=== PATIENT | male | born 1945 | race Caucasian/White ===

== ENCOUNTER 2024-05-06 10:33 | Outpatient (REF) | payer OTHER, SELFPAY ==
[2024-05-06 11:06] LABS: Estimated Average Glucose 120 mg/dL; Hemoglobin A1C 143.8502 umol/L; Hemoglobin A1c % 5.8 % (<6.0); Total Hemoglobin (HGBA1C) 3619.3475 umol/L
--- OUTSIDE RECORDS SUMMARY | 2024-05-06 11:33 | XMS_ITS ---
Author Organization Severo Phillips MD Address [address] [place] [phone] Care Team Providers Care Milk Pasteurizer Name Role Phone Severo Phillips Primary Care Provider Results Component Value Reference Range Notes Hemoglobin A1c (Not yet revi ewed by provider) Interpretation: Performing Lab:[facility], [address] [place] [phone] Notes/Report: Hemoglobin A1c % 5.8 <6.0 % [...] average glucose, using the formula of the M5I-Ifssawn Average Glucose study (ADAG), Diabetes Care, Vol.31,#8, Oct. 2007 REASON FOR VISIT LIVER PANEL, GLUCOSE FASTING, A1C Encounters Encounter Location Date Provider Diagnosis Severo Phillips MD [address] [place] [phone] 05/06/2024 Severo Phillips Prediabetes R73.09 Assessments Encounter Date Diagnosis (ICD Code) Assessment Notes Treatment Notes Treatment Clinical Notes Section Notes 05/06/2024 Prediabetes (ICD-10 - R73.09) Plan Of Treatment Pending Test Test Name Order Date Liver Panel 05/06/2024 Glucose Fasting 05/06/2024 Hemoglobin A1c 05/06/2024 Next Appt Details Provider Name:Severo clarkr, 05/10/2024 01:30:00 PM, [address] [place] [address], [address], [phone], Provider Name:Severo clarkr, 07/23/2024 07:30:00 AM, [address] [place] [address], [address], [phone], Provider Name:Severo Luque ier, 07/29/2024 11:15:00 AM, [address] [place] [address], [address], [phone], Provider Name:Severo Bin Duncandivya ier, 01/27/2025 07:30:00 AM, [address] [place] [address], [address], [phone], Provider Name:Severo Luque amberr, 02/03/2025 10:30:00 AM, [address] [place] [address], [address], [phone], Progress Notes * Travis POND GDOB: [birth year] (79 yo M)Acc No.[id number]:05/06/2024 Progress Note Patient:?ALEXISMAYRAONEIDA Travis Lion Provider:?Severo Phillips MD :1945???Age:79 Y???Sex:Male Jeffrey e:05/06/2024 Address:[place] [address] [place] [address] Subjective: * Chief Complaints: * ???1. LIVER PANEL, GLUCOSE F ASTING, A1C. * Medical History:? Objective: * Vitals:? Assessment: * Assessment: 1.?Prediabetes - R73.09??? Plan: * Treatment: * Procedure Codes:?38126 VENIP UNCT, ROUTINE* * * The named appointment provid er may or may not be the originator of this progress note, and it is not deemed complete until electronically signed by the appointment provider. Sign off status: Pending * Provider:?Severo Phillips MD Date:?0 05/06/2024 Generated for Fidel guzmán/Aidee/Elidaitting on:?05/06/2024 11:32 AM EST
--- OUTSIDE RECORDS SUMMARY | 2024-05-06 11:33 | XMS_ITS ---
Author Organization Severo Phillips MD Address [address] [place], [place] [phone] Care Team Providers Care Heel Scorer Name Role Phone Severo Phillips Primary Care Provider [phone] Allergies Allergen (clinical drug ingredient) Drug/Non Drug Allergy documented on EMR Reaction Allergy Type Onset Date Status Iodine dye (uncoded) hives Allergy Active REASON FOR VISIT go over lab results, Audio [phone] Medications Medication SIG (Take, Route, Frequency, Duration) [...] Location Date Provider Diagnosis Severo Phillips MD [address] [place] [phone] 02/01/2024 Severo Phillips Prediabetes R73.09 ; Elevated [...] hypercholesterolemia stable, will c ontiue current regiment Pending Test Test Name Order Date Liver Panel 02/01/2024 Glucose Fasting 02/01/2024 Hemoglobin A1c 02/01/2024 Next Appt Details Follow Up: 3 Months, Reason: Provider Name:Severo sanchez, 05/10/2024 01:30:00 PM, [address] [place] [address], [address], [phone], Provider Name:Severo sanchez, 07/23/2024 07:30:00 AM, [address] [place] [address], [address], [phone], Provider Name:Severo sanchez, 07/29/2024 11:15:00 AM, [address] [place] [address], [address], [phone], Provider Name:Severo Luque amberr, 01/27/2025 07:30:00 AM, [address] [place] [address], Suite [facility], [place], [phone], Provider Name:Severo Luque amberr, 02/03/2025 10:30:00 AM, [address] [place] [address], Suite [facility], [place], [phone], Progress Notes * HEIDY Travis GDOB: [birth year] (78 yo M)Acc No.[id number]:02/01/2024 Patient:?Travis Pond Ayad Provider:?Severo Phillips MD :1945???Age:78 Y???Sex:Male Jeffrey e:02/01/2024 Address:[facility] [address] [place] [address] Subjective: * Chief Complaints: * ???[phone] * HPI: ???Symptom(s):?Telehealth?Location of provider rendering services:?[address] [place] [address], Suite [facility],?Location of patient:?at address listed in demographics for today's visit,?Patient identification confirmed using:?Name, , SSN, Insurance information,?Telehealth method:?Telephone only. Patient not visible to care provider.,?Consent:?Patient verbally consented to treatment, Patient verbally consented to billing insurance company, Patient informed of any privacy concerns related to method of visit,?Total time spend talking with patient (minutes)?15.? patient is a 78 yo male audio tlehealthvisit, here for follow up to go over recent labs. * ROS:?General/Constitutional:?Denies?Chills.?Denies?Fatigue.?Denies?Fever.?Denies?Headache.?ENT:?Patient denies?decreased sense of smell , any loss of taste , sore throat.?Denies?Sore throat.?Respiratory:?Denies?Cough.?Denies?Shortness of breath at rest.?Denies?Shortness of breath with exertion.?Gastrointestinal:?Denies?Diarrhea.?Denies?Nausea.?Musculoskeletal:?Patient denies?muscle aches.?Peripheral Vascular:?Patient denies?red and blue toes.? * Medical History:? * Surgical History:? * Hospitalization/Major Diagno stic Procedure:? * Medications:?TakingprednisoL ONE Acet-Moxifloxacin 1-0.5 % Suspension as directed Ophthalmic [...] reviewed and reconciled with the patient * Allergies:?Iodine dye: hives yes[Allergies Verified] Objective: * Vitals:?Ht: 69, Wt:201, BMI: 29.68 weight is 201 at home BP not taken at home. Assessment: * Assessment: 1.?Prediabetes - R73.09 (Kisha mon)?2.?Elevated LFTs - R79.89?3.?Pure hypercholesterolemia - E78.00? Plan: * Treatment: 2.?Elevated LFTs? Notes: decrease wine, will continue to monitor?? 3.?Pure hypercholesterolemia ? Continue Simvastatin Tablet, 40 MG, TAKE 1 TABLET BY MOUTH ONCE DAILY IN THE EVENING.?? Notes: stable, will contiue current regiment?? * Procedure Codes:?06204 PHONE E/M BY PHYS 21-30 MIN * Follow Up:?3 Months * * Sign off status: Completed true * Provider:?Severo Phillips MD Date:?04/02/2023 Generated for Dhiraji ramirez/Aidee/eTransmitting on:?05/06/2024 11:33 AM EST History and Physical Notes * HPI (History of Present Illness) Category Sub-Category Detail Notes Category Not es Symptom(s) Telehealth Location of [facility] rendering services:: [address] [place] [address] Drive, [address] patient is a 78 [...]
--- OUTSIDE RECORDS SUMMARY | 2024-05-06 11:33 | XMS_ITS ---
Author Organization Severo Phillips MD Address [address] [place], [place] [phone] Care Team Providers Care Box Lining Machine Operator Name Role Phone Severo Phillips Primary Care Provider Allergies Allergen (clinical drug ingredient) Drug/Non Drug [...] kg/m2 01/30/2024 weight is down 2 pounds [facility] 05-25-23 Encounters Encounter Location Date Provider Diagnosis Severo Phillips MD [address] [place] [address] [place] [phone] 01/30/2024 Severo Phillips Essential hypertensi on I10 [...] hypercholesterolemia (ICD-10 - E78.00) need labs from [facility] / request for records will be sent [...] nurses house Pure hypercholesterolemia need labs from [facility] / request for records will be sent Prediabetes stable, no need for medication at this time BPH (benign prostatic hyperplasia) stabl e, will contiue current regiment Encounter for immunization flu vaccine a dministered Colon cancer screening guaiac negative Depression screening negative screen Next Appt Details Follow Up: 6 Months, Reason: Provider Name:Severo sanchez, 05/10/2024 01:30:00 PM, [address] [place] [address], [phone], Provider Name:Severo sanchez, 07/23/2024 07:30:00 AM, [address] [place] [address], [phone], Provider Name:Severo sanchez, 07/29/2024 11:15:00 AM, [address] [place] [address], [phone], Provider Name:Severo sanchez, 01/27/2025 07:30:00 AM, [address] [place] [address], [phone], Provider Name:Severo sanchez, 02/03/2025 10:30:00 AM, [address], [address], [place], [place], [phone], Progress Notes * Travis POND GDOB: [birth year] (78 yo M)Acc No.[id number]:01/30/2024 Patient:Travis Mckeon Provider:?Severo Phillips MD :1945???Age:78 Y???Sex:Male Jeffrey e:01/30/2024 Address:[facility] [address] [facility], [place] [address] Subjective: * Chief Complaints: * ???Review labs * HPI: ???Depression Screening:?PHQ-9?Little interest or pleasure in doing things?Not at all,?Feeling down, depressed, or hopeless?Not at all,?Trouble falling or staying asleep, or sleeping too much?Not at all,?Feeling tired or having little energy?Not at all,?Poor appetite or overeating?Not at all,?Feeling bad about yourself or that you are a failure, or have let yourself or your family down?Not at all,?Trouble concentrating on things, such as reading the newspaper or watching television?Not at all,?Moving or speaking so slowly that other people could have noticed; or the opposite, being so fidgety or restless that you have been moving around a lot more than usual?Not at all,?Thoughts that you would be better off or of hurting yourself in some way?Not at all,?Total Score?0.?Interpretation and Intervention?Depression Screening Findings?Negative,?Follow-Up for Depression?: review of PHQ-9 found negative result, no follow-up needed.?Communication Needs:?Communication Needs?Does the patient have a hearing impairment?No,?Does the patient have a vision impairment??Yes,?If yes, what is the vision impairment??Glasses,?Does the patient have a cognition impairment??No.?Fall Risk:?History?Have you had any falls with injury in the past year??Yes 11-26-23 fell off a small ladder moving a plant. had xray of r wrist. saw hand surgeon 12-26-23,?Have you had two or more falls in the past year??No.?SDOH Questions:?SDOH Questions?In the past year have you been worried about losing housing??No,?In the past year have you or any family members you live with been unable to get any of the following when it was really needed? Check all that apply:?None.?Symptom(s):? patient is a 78 yo male here for visit with review of recent labs and follow up of chronic issues, having some problems with shoulder and knees. has been using voltaren cream. is helping. knee is bothering him. * ROS:?General/Constitutional:?Patient denies?fatigue , headache.?Change in appetite?denies.?Chills?denies.?Fever?denies.?Ophthalmologic:?Blurred vision?denies.?Discharge?denies.?Pain?denies.?ENT:?Patient denies?decreased sense of smell , any loss of taste , sore throat.?Decreased hearing?denies.?Sore throat?denies.?Swollen glands?denies.?Endocrine:?Cold intolerance?denies.?Excessive thirst?denies.?Heat intolerance?denies.?Weight loss?denies.?Respiratory:?Cough?denies.?Shortness of breath at rest?denies.?Shortness of breath with exertion?denies.?Wheezing?denies.?Cardiovascular:?Chest pain at rest?denies.?Chest pain with exertion?denies.?Irregular heartbeat?denies.?Shortness of breath?denies.?Gastrointestinal:?Abdominal pain?denies.?Change in bowel habits?denies.?Diarrhea?denies.?Nausea?denies.?Rectal bleeding?denies.?Vomiting?denies .?Genitourinary:?Blood in urine?denies.?Difficulty urinating?denies.?Frequent urination?denies.?Musculoskeletal:?Patient denies?muscle aches.?Painful joints?denies.?Weakness?denies.?Peripheral Vascular:?Patient denies?red and blue toes.?Skin:?Dry skin?denies.?Itching?denies.?Denies?Mole(s),? changes in moles, new moles or any lesions of concern.?Denies?Photosensitivity.?Rash?denies.?Neurologic:?Dizziness?denies.?Fainting?denies.?Headache?denies.? * Medical History:? * Surgical History:? * Hospitalization/Major Diagno stic Procedure:? * Family History:?Father: dece ased 71 yrs.?Mother: 69 yrs.?1 brother(s) . .? Father [place] Mother- pancreatic Cancer no drug or mental illness in the family, Denies mental health/substance abuse family history, Denies mental health/substance abuse family history, Denies mental health/substance abuse family history, Denies mental health/substance abuse family history. * Social History:?Tobacco Use:?Tobacco Use/Smoking?Patient is a?former smoker,?How long has it been since you last smoked??> 10 years,?Additional Findings: Tobacco Non-User?Former smoker, currently using no form of tobacco.?Drugs/Alcohol:?Alcohol Screen?Did you have a drink containing alcohol in the past year??Yes,?How often did you have a drink containing alcohol in the past year??2 to 4 times a month (2 points),?How many drinks did you have on a typical day when you were drinking in the past year??1 or 2 drinks (0 point),?How often did you have 6 or more drinks on one occasion in the past year??Never (0 point),?Points?2,?Interpretation?Negative.?Miscellaneous:?Caffeine: yes, frequency:, 1-2 cups per day. no Children. Community involvements: yes. no Exercise. Housing: lives in the parish house. Living with: other priests. Marital status: single. Occupation: works full-time. Pets: none. no Travel outside of the [place]. * Medications:?TakingprednisoL ONE Acet-Moxifloxacin 1-0.5 % Suspension [...] Verified] Objective: * Vitals:?Ht: 69, Wt:201, BMI: 29.68, BP:172/80, Repeat BP:160/70 weight is down 2 pounds since 05-25-23. * Examination: ???General Examination: ?GENERAL APPEARANCE:?well developed, well nourished, in no acute distress.?HEAD:?normocephalic, atraumatic.?EYES:?pupils equal, round, reactive to light and accommodation, sclera non-icteric.?EARS:?normal.?ORAL CAVITY:?mucosa moist.?THROAT:?clear.?NECK/THYROID:?neck supple, full range of motion, no cervical lymphadenopathy, no bruits.?SKIN:?warm and dry, no suspicious lesions.?HEART:?regular rate and rhythm, S1, S2 normal, no murmurs.?LUNGS:?clear to auscultation bilaterally.?ABDOMEN:?soft, nontender, nondistended, bowel sounds present, normal, no organomegaly , no masses palpable.?RECTAL EXAM:?normal tone, no external hemorrhoids, no masses palpable, prostate normal, stool guaiac negative.?MALE GENITOURINARY:?uncircumcised , no testicular mass , testes descended bilaterally.?EXTREMITIES:?no clubbing, cyanosis, or edema.?NEUROLOGIC:?nonfocal, motor strength normal upper and lower extremities, sensory exam intact.? Assessment: * Assessment: 1.?Essential hypertension - I10 (Primary)?2.?Pure hypercholesterolemia - E78.00?3.?Prediabetes - R73.09?4.?BPH (benign prostatic hyperplasia) - N40.0?5.?Encounter for immunization - Z23?6.?Colon cancer screening - Z12.11?7.?Depression screening - Z13.31? Plan: * Treatment: 2.?Pure hypercholesterolemia ? Continue Simvastatin Tablet, 40 MG, TAKE 1 TABLET BY MOUTH ONCE DAILY IN THE EVENING.?? Notes: need labs from [facility] / request for records will be sent?? 3.?Prediabetes? Notes: stable, no need for medication at this time?? 4.?BPH (benign prostatic hyp erplasia)? Continue Proscar Tablet, 5 MG, 1 tablet, Orally, Once a day.?? Notes: stable, will contiue current regiment?? 5.?Encounter for immunizatio n? Notes: flu vaccine administered?? 6.?Colon cancer screening?LAB: Occult Blood, Stool, Guaiac?Negative ? Value Reference Range ?Occult Blood, Stool, Guaiac Neg Notes: guaiac negative??7.?Depression screening? Notes: negative screen?? * Immunizations:? Influenza High Dose : 0.5 mL (Dose No:1) (Route: Intramuscular) given by Ashley Whittington on Right Deltoid * Procedure Codes:?89634 FLU V ACC PRSV FREE INC [id number] ADMN FLU VAC NO FEE SCHED SAME [id number] TEST FOR BLOOD, FECES * Preventive Medicine:? ??Counseling:?Care goal follow-up plan:?Counseling for abnormal BMI provided?Yes,?Above Normal BMI Follow-up?Giving encouragement to exercise.? * Follow Up:?6 Months * * Sign off status: Completed true * Provider:?Severo Phillips MD Date:?1 03/31/2023 Generated for Fidel guzmán/Aidee/Elianasmitting on:?05/06/2024 11:33 AM EST History and Physical [...] patient have a vision impairmen t?: Yes ?If yes, what is the vision impairment?: Glasses Does the patient have a cognition impair ment?: No Examination Category Sub-Category Detail Notes Category Not es General Examination GENERAL APPEARANCE: well dev eloped, well nourished, in no acute distress HEAD: normocephalic, atrau matic EYES: pupils equal, round, reactive to light and accommodation, sclera non- icteric EARS: normal THROAT: clear NECK/THYROID: neck supple, [...]
[2024-05-06 11:37] LABS: Alanine Aminotransferase 78 U/L (0-40); Albumin Level 3.8 g/dL (3.5-5.0); Alkaline Phosphatase 54 U/L (39-117); Aspartate Amino Transferase 53 U/L (5-37); Bilirubin Direct 0.2 mg/dL (0.0-0.5); Bilirubin Total 0.7 mg/dL (0.0-1.0); Glucose Fasting 155 mg/dL (60-99); Total Protein 7.6 g/dL (6.5-8.0)
== END 2024-05-06 10:34 | disposition home or self-care (01) ==
LOC: HO.LNP 10:33
PROVIDERS: Visit Provider Internal Medicine
DX: R73.09 Other abnormal glucose (principal)
CPT/HCPCS: 80076; 82947; 83036

== ENCOUNTER 2025-01-27 10:08 | Outpatient (REF) | payer MEDICARE, SELFPAY ==
--- OUTSIDE RECORDS SUMMARY | 2023-12-14 05:28 | XMS_ITS ---
Author Organization Severo Phillips MD Address [address] [place] [phone] Care Team Providers Care [place] Tribunal Member Name Role Phone Severo Phillips Primary Care Provider REASON FOR VISIT x-ray results Encounters Encounter Location Date Provider Diagnosis Severo Phillips MD [address] [facility] [address] [place] [phone] 12/14/2023 Severo Phillips Plan Of Treatment Next Appt Details Provider Name:Severo Luque ier, 02/03/2025 10:30:00 AM, [address], Suite [facility], [place], [place], [phone], Progress Notes * Travis POND GDOB: [birth year] (78 yo M)Acc No.[id number]:12/14/2023 Patient: Khloe sears Travis Ayad :1945 A ge:78 Y S ex:Male Address:[address] [place] [address] * true * Date: Generated for Fidel guzmán/Aidee/Brenda on: 03/29/2024 12:12 PM EST
--- OUTSIDE RECORDS SUMMARY | 2024-01-19 03:30 | XMS_ITS ---
Author Organization Severo Phillips MD Address [address] [place] [phone] Care Team Providers Care Junior Recruiter Name Role Phone Severo Phillips Primary Care Provider REASON FOR VISIT FASTING LABS Encounters Encounter Location Date Provider Diagnosis Severo Phillips MD [address] [place] [phone] 01/19/2024 Severo Phillips Essential hypertensi on I10 ; Pure hypercholesterolemia E78.00 and Prediabetes R73.09 Assessments Encounter Date Diagnosis (ICD Code) Assessment Notes Treatment Notes Treatment Clinical Notes Section Notes 01/19/2024 Essential hypertensi on (ICD-10 - I10) 01/19/2024 Pure hypercholesterolemia (ICD-10 - E78.00) 01/19/2024 Prediabetes (ICD-10 - R73.09) Plan Of Treatment Next Appt Details Provider Name:Severo sanchez, 02/03/2025 10:30:00 AM, [address], Suite [facility], [place], [place], [phone], Progress Notes * Travis POND GDOB: [birth year] (79 yo M)Acc No.[id number]:01/19/2024 Progress Note Patient: Travis JONES Provider: Ayad Phillips MD :1945 A ge:78 Y S ex:Male Date:01/19/2024 Address:[place] [address], [address] [place] [address] Subjective: * Chief Complaints: * 1 . FASTING LABS. * Medical History: Objective: * Vitals: Assessment: * Assessment: 1. E ssential hypertension - I10 2 . P ure hypercholesterolemia - E78.00? 3. P rediabetes - R73.09 Plan: * Treatment: 2. P ure hypercholesterolemia L AB: Complete Blood Count Auto Diff (Order Cancelled) L AB: Comprehensive [place]. Panel Fast (Order Cancelled) L AB: Lipid Panel (Order Cancelled) L AB: PSA,Total (Free>4and<10) (Order Cancelled) L AB: Microalbumin, Random (Order Cancelled) L AB: Hemoglobin A1c (Order Cancelled) L AB: UA ClnCatch+Micro w/rflx Cult (Order Cancelled) 3. P rediabetes L AB: Complete Blood Count Auto Diff (Order Cancelled) L AB: Comprehensive [place]. Panel Fast (Order Cancelled) L AB: Lipid Panel (Order Cancelled) L AB: PSA,Total (Free>4and<10) (Order Cancelled) L AB: Microalbumin, Random (Order Cancelled) L AB: Hemoglobin A1c (Order Cancelled) L AB: UA ClnCatch+Micro w/rflx Cult (Order Cancelled) * * The named appointment provid er may or may not be the originator of this progress note, and it is not deemed complete until electronically signed by the appointment provider. Sign off status: Pending * Provider: Ayad Phillips MD Date: Generated for Fidel guzmán/Aidee/Elidaitting on: 03/29/2024 12:13 PM EST
--- OUTSIDE RECORDS SUMMARY | 2024-01-30 06:00 | XMS_ITS ---
Author Organization Severo Phillips MD Address [address] [place], [place] [phone] Care Team Providers Care Manager Environmental Services Name Role Phone Severo Phillips Primary Care Provider [phone] Allergies Allergen (clinical drug ingredient) Drug/Non Drug Allergy documented on EMR Reaction Allergy Type Onset Date Status Iodine dye (uncoded) hives Allergy Active Results Component Value Reference Range Notes Occult Blood, Stool, Guaiac Reviewed date:01/30/2024 12:57:21 PM Interpretation:Negative Performing Lab: Notes/Report: Negative Occult Blood, Stool, Guaiac Neg REASON FOR VISIT review labs Medications Medication SIG (Take, Route, Frequency, Duration) Notes Start Date End Date Status Valsartan-hydroCHLOROthiaz gregory 320-25 MG TAKE 1 TABLET BY MOUTH ONCE DAILY Active Cyclobenzaprine HCl 5 MG 1 tablet at bed time as needed Orally twice a day for 10 days 09/03/2021 Not-Taking Celecoxib 200 MG 1 capsule with food Orally Once a day for 30 day(s) 10/30/2018 Not-Taking Fluorouracil 5 % 1 application to affected area Externally Twice a day 02/13/2017 Not-Takin g Ibuprofen 600 MG 1 tablet Orally Thre e times a day Not-Taking Proscar 5 MG 1 tablet Orally Once a day Active Simvastatin 40 MG TAKE 1 TABLET BY JERALD TH ONCE DAILY IN THE EVENING Active Flonase 50 MCG/ACT 1 spray in each nostril Nasally Once a day for 90 days 09/12/2017 Active prednisoLONE Acet-Moxifloxacin 1-0.5 % as directed Ophthalmic Active Immunizations Vaccine Route Administration Date Status Comme nts Influenza High Dose IM Intramuscular 01/30/2024 Administer ed Social History Tobacco Use: Social History Observation Description Date Details (start date - stop date) Former Smoker NA - NA Tobacco Use/Smoking Question Answer Notes Patient is a former smoker How long has it been since y ou last smoked? > 10 years Additional Findings: Tobacco Non-User Fo rmer smoker, currently using no form of tobacco Alcohol Screen Question Answer Notes Did you have a drink contain ing alcohol in the past year? Yes How often did you have a dri nk containing alcohol in the past year? 2 to 4 times a month (2 points) How many drinks did you have on a typical day when you were drinking in the past year? 1 or 2 drinks (0 point) How often did you have 6 or more drinks on one occasion in the past year? Never (0 point) Points 2 Interpretation Negative Vital Signs Blood pressure systolic 172 mm Hg 01/30/20 24 Blood pressure diastolic 80 mm Hg 024 Height 69 in 01/30/2024 Weight 201 lbs 01/30/2024 BMI 29.68 kg/m2 01/30/2024 weight is down 2 pounds [facility] 05-25-23 Encounters Encounter Location Date Provider Diagnosis Severo Phillips MD [address] [place] [address] [place] [phone] 01/30/2024 Severo Phillips Essential hypertensi on I10 ; Pure hypercholesterolemia E78.00 ; Prediabetes R73.09 ; BPH (benign prostatic hyperplasia) N40.0 ; Encounter for immunization Z23 ; Colon cancer screening Z12.11 and Depression screening Z13.31 Assessments Encounter Date Diagnosis (ICD Code) Assessment Notes Treatment Notes Treatment Clinical Notes Section Notes 01/30/2024 Essential hypertensi on (ICD-10 - I10) is running high today but is going to get it checked at nurses [facility] 01/30/2024 Pure hypercholesterolemia (ICD-10 - E78.00) need labs from [facility] / request for records will be sent 01/30/2024 Prediabetes (ICD-10 - R73.09) stable, no need for medication at this time 01/30/2024 BPH (benign prostati c hyperplasia) (ICD-10 - N40.0) stable, will contiue current regiment 01/30/2024 Encounter for immunization (ICD-10 - Z23) flu vaccine administered 01/30/2024 Colon cancer screeni ng (ICD-10 - Z12.11) guaiac negative 01/30/2024 Depression screening (ICD-10 - Z13.31) negative screen Plan Of Treatment Medication Medication Name Sig Start Date Stop Date Notes Valsartan-hydroCHLOROthiazid e 320-25 MG TAKE 1 TABLET BY MOUTH ONCE DAILY Proscar 5 MG 1 tablet Orally Once a day Simvastatin 40 MG TAKE 1 TABLET BY JERALD TH ONCE DAILY IN THE EVENING Treatment Notes Assessment Notes Essential hypertension is running high t charanjit but is going to get it checked at nurses house Pure hypercholesterolemia need labs from [facility] / request for records will be sent Prediabetes stable, no need for medication at this time BPH (benign prostatic hyperplasia) stabl e, will contiue current regiment Encounter for immunization flu vaccine a dministered Colon cancer screening guaiac negative Depression screening negative screen Next Appt Details Follow Up: 6 Months, Reason: Provider Name:Severo sanchez, 02/03/2025 10:30:00 AM, [address] [place] [address], [address], [phone], Progress Notes * Travis POND GDOB: [birth year] (78 yo M)Acc No.[id number]:01/30/2024 Patient: Travis Wilkins Provider: Ayad Phillips MD :1945 A ge:78 Y S ex:Male Date:01/30/2024 Address:[facility] [address] [place] [address] Subjective: * Chief Complaints: * R eview labs * HPI: D epression Screening: PHQ-9 L ittle interest or pleasure in doing things N ot at all, F eeling down, depressed, or hopeless N ot at all, T rouble falling or staying asleep, or sleeping too much N ot at all, F eeling tired or having little energy N ot at all, P oor appetite or overeating N ot at all, F eeling bad about yourself or that you are a failure, or have let yourself or your family down N ot at all, T rouble concentrating on things, such as reading the newspaper or watching television N ot at all, M oving or speaking so slowly that other people could have noticed; or the opposite, being so fidgety or restless that you have been moving around a lot more than usual N ot at all, T houghts that you would be better off or of hurting yourself in some way N ot at all, T otal Score 0 . I nterpretation and Intervention D epression Screening Findings N egative, F ollow-Up for Depression : review of PHQ-9 found negative result, no follow-up needed. C ommunication Needs: Communication Needs D oes the patient have a hearing impairment N o, D oes the patient have a vision impairment? Y es, I f yes, what is the vision impairment? G lasses, D oes the patient have a cognition impairment? N o. F all Risk: History H ave you had any falls with injury in the past year? Y es 11-26-23 fell off a small ladder moving a plant. had xray of r wrist. saw hand surgeon 12-26-23, H ave you had two or more falls in the past year? N o. S CHANELLE Questions: SDOH Questions I n the past year have you been worried about losing housing? N o, I n the past year have you or any family members you live with been unable to get any of the following when it was really needed? Check all that apply: N one. S ymptom(s): patient is a 78 yo male here for visit with review of recent labs and follow up of chronic issues, having some problems with shoulder and knees. has been using voltaren cream. is helping. knee is bothering him. * ROS: G eneral/Constitutional: Patient denies f atigue , headache. C hange in appetite?denies. C hills d enies. F ever d enies. O phthalmologic: Blurred vision d enies. D ischarge d enies. P ain d enies. E NT: Patient denies d ecreased sense of smell , any loss of taste , sore throat. D ecreased hearing d enies. S ore throat d enies. S wollen glands d enies. E ndocrine: Cold intolerance d enies. E xcessive thirst d enies. H eat intolerance d enies. W eight loss d enies. R espiratory: Cough d enies. S hortness of breath at rest d enies. S hortness of breath with exertion d enies. W heezing d enies. C ardiovascular: Chest pain at rest d enies. C hest pain with exertion?denies. I rregular heartbeat d enies. S hortness of breath d enies. ? G astrointestinal: Abdominal pain d enies. C hange in bowel habits d enies. D iarrhea d enies. N ausea d enies. R ectal bleeding d enies. V omiting d enies . G enitourinary: Blood in urine d enies. D ifficulty urinating d enies. F requent urination d enies. M usculoskeletal: Patient denies m uscle aches. P ainful joints d enies. W eakness d enies. P eripheral Vascular: Patient denies r ed and blue toes. S kin: Dry skin d enies. I tching d enies. D enies?Mole(s), changes in moles, new moles or any lesions of concern. D enies P hotosensitivity. R ulisses d enies. N eurologic: Dizziness d enies. F ainting d enies. H eadache?denies. * Medical History: * Surgical History: * Hospitalization/Major Diagno stic Procedure: * Family History: F ather: 71 yrs. M other: 69 yrs. 1 brother(s) . . Father [place] Mother- pancreatic Cancer no drug or mental illness in the family, Denies mental health/substance abuse family history, Denies mental health/substance abuse family history, Denies mental health/substance abuse family history, Denies mental health/substance abuse family history. * Social History: T obacco Use: T obacco Use/Smoking P atient is a f ormer smoker, H ow long has it been since you last smoked? > 10 years, A dditional Findings: Tobacco Non-User F ormer smoker, currently using no form of tobacco. D rugs/Alcohol: A lcohol Screen D id you have a drink containing alcohol in the past year? Y es, H ow often did you have a drink containing alcohol in the past year? 2 to 4 times a month (2 points), H ow many drinks did you have on a typical day when you were drinking in the past year? 1 or 2 drinks (0 point), H ow often did you have 6 or more drinks on one occasion in the past year? N ever (0 point), P oints 2 , I nterpretation N egative. M iscellaneous: C affeine: yes, frequency:, 1-2 cups per day. no Children. Community involvements: yes. no Exercise. Housing: lives in the poth house. Living with: other priests. Marital status: single. Occupation: works full-time. Pets: none. no Travel outside of the [place]. * Medications: T akingprednisoLONE Acet-Moxifloxacin 1-0.5 % Suspension as directed Ophthalmic Proscar 5 MG Tablet 1 tablet Orally Once a dayFlonase 50 MCG/ACT Suspension 1 spray in each nostril Nasally Once a daySimvastatin 40 MG Tablet TAKE 1 TABLET BY MOUTH ONCE DAILY IN THE EVENING Valsartan-hydroCHLOROthiazide 320-25 MG Tablet TAKE 1 TABLET BY MOUTH ONCE DAILY Taking prednisoLONE Acet-Moxifloxacin 1-0.5 % Suspension as directed Ophthalmic Taking Proscar 5 MG Tablet 1 tablet Orally Once a dayTaking Flonase 50 MCG/ACT Suspension 1 spray in each nostril Nasally Once a dayTaking Simvastatin 40 MG Tablet TAKE 1 TABLET BY MOUTH ONCE DAILY IN THE EVENING Taking Valsartan-hydroCHLOROthiazide 320-25 MG Tablet TAKE 1 TABLET BY MOUTH ONCE DAILY Not-Taking/PRNCyclobenzaprine HCl 5 MG Tablet 1 tablet at bedtime as needed Orally twice a dayCelecoxib 200 MG Capsule 1 capsule with food Orally Once a dayFluorouracil 5 % Cream 1 application to affected area Externally Twice a dayIbuprofen 600 MG Tablet 1 tablet Orally Three times a dayMedication List reviewed and reconciled with the patientNot-Taking/PRN Cyclobenzaprine HCl 5 MG Tablet 1 tablet at bedtime as needed Orally twice a dayNot-Taking/PRN Celecoxib 200 MG Capsule 1 capsule with food Orally Once a dayNot-Taking/PRN Fluorouracil 5 % Cream 1 application to affected area Externally Twice a dayNot-Taking/PRN Ibuprofen 600 MG Tablet 1 tablet Orally Three times a dayMedication List reviewed and reconciled with the patient * Allergies: I odine dye: hivesyes[Allergies Verified] Objective: * Vitals: H t: 69, Wt:201, BMI:29.68, BP:172/80, Repeat BP:160/70 weight is down 2 pounds since 05-25-23. * Examination: G eneral Examination: GENERAL APPEARANCE: w ell developed, well nourished, in no acute distress. HEAD: n ormocephalic, atraumatic. EYES: p upils equal, round, reactive to light and accommodation, sclera non-icteric. EARS: n ormal. ORAL CAVITY: m ucosa moist. THROAT: c lear. NECK/THYROID: n adam supple, full range of motion, no cervical lymphadenopathy, no bruits. SKIN: w arm and dry, no suspicious lesions. HEART: r egular rate and rhythm, S1, S2 normal, no murmurs.? LUNGS: c lear to auscultation bilaterally. ABDOMEN: s oft, nontender, nondistended, bowel sounds present, normal, no organomegaly , no masses palpable. RECTAL EXAM: n ormal tone, no external hemorrhoids, no masses palpable, prostate normal, stool guaiac negative. MALE GENITOURINARY: u ncircumcised , no testicular mass , testes descended bilaterally. EXTREMITIES: n o clubbing, cyanosis, or edema. NEUROLOGIC: n onfocal, motor strength normal upper and lower extremities, sensory exam intact. Assessment: * Assessment: 1. E ssential hypertension - I10 (Primary) 2 . P ure hypercholesterolemia - E78.00 3 . P rediabetes - R73.09 4 . B PH (benign prostatic hyperplasia) - N40.0 5 . E ncounter for immunization - Z23 6 . C olon cancer screening - Z12.11 7 . D epression screening - Z13.31 Plan: * Treatment: 2. P ure hypercholesterolemia Continue Simvastatin Tablet, 40 MG, TAKE 1 TABLET BY MOUTH ONCE DAILY IN THE EVENING. Notes: need labs from [facility] / request for records will be sent 3. P rediabetes Notes: stable, no need for medication at this time 4. B PH (benign prostatic hyperplasia) Continue Proscar Tablet, 5 MG, 1 tablet, Orally, Once a day. Notes: stable, will contiue current regiment 5. E ncounter for immunization Notes: flu vaccine administered 6. C olon cancer screening L AB: Occult Blood, Stool, Guaiac N egative Value Reference Range O ccult Blood, Stool, Guaiac Neg Notes: guaiac negative??7.?Depression screening? Notes: negative screen?? * Immunizations: Influenza High Dose : 0.5 mL (Dose No:1) (Route: Intramuscular) given by Ashley Whittington on Right Deltoid * Procedure Codes: 9 0662 FLU VACC PRSV FREE INC [id number] ADMN FLU VAC NO FEE SCHED SAME [id number] TEST FOR BLOOD, FECES * Preventive Medicine: Counseling: C are goal follow-up plan: C ounseling for abnormal BMI provided?Yes, Jonnie roche Normal BMI Follow-up Ayad mann encouragement to exercise. * Follow Up: 6 Months * * Sign off status: Completed true * Provider: Ayad Phillips MD Date: 03/31/2023 Generated for Fidel guzmán/Aidee/Elidaitting on: 03/29/2024 12:14 PM EST History and Physical Notes * HPI (History of Present Illness) Category Sub-Category Detail Notes Category Not es Symptom(s) patient is a 78 yo male here for visit with review of recent labs and follow up of chronic issues, having some problems with shoulder and knees. has been using voltaren cream. is helping. knee is bothering him Depression Screening PHQ-9 Little inte rest or pleasure in doing things: Not at all Feeling down, depressed, or hopeless: No t at all Trouble falling or staying asleep, or sl eeping too much: Not at all Feeling tired or having little energy: N ot at all Poor appetite or overeating: Not at all Feeling bad about yourself o r that you are a failure, or have let yourself or your family down: Not at all Trouble concentrating on thi ngs, such as reading the newspaper or watching television: Not at all Moving or speaking so slowly that other people could have noticed; or the opposite, being so fidgety or restless that you have been moving around a lot more than usual: Not at all Thoughts that you would be b moon off or of hurting yourself in some way: Not at all Total Score: 0 Interpretation and Intervention Depression Gunnare susan Findings: Negative Follow-Up for Depression: : review of PH Q-9 found negative result, no follow-up needed SDOH Questions SDOH Questions In the past year have you been worried about losing housing?: No In the past year have you or any family members you live with been unable to get any of the following when it was really needed? Check all that apply:: None Fall Risk History Have you had any falls with injury in the past year?: Yes 11-26-23 fell off a small ladder moving a plant. had xray of r wrist. saw hand surgeon 12-26-23 Have you had two or more falls in the year?: No Communication Needs Communication Needs Does the patient have a hearing impairment: No Does the patient have a vision impairmen t?: Yes If yes, what is the vision impairment?: Glasses Does the patient have a cognition impair ment?: No Examination Category Sub-Category Detail Notes Category Not es General Examination GENERAL APPEARANCE: well dev eloped, well nourished, in no acute distress HEAD: normocephalic, atrau matic EYES: pupils equal, round, reactive to light and accommodation, sclera non-icteric EARS: normal THROAT: clear NECK/THYROID: neck supple, full ra nge of motion, no cervical lymphadenopathy, no bruits HEART: regular rate and rhy thm, S1, S2 normal, no murmurs LUNGS: clear to auscultatio n bilaterally ABDOMEN: soft, nontender, non distended, bowel sounds present, normal, no organomegaly , no masses palpable NEUROLOGIC: nonfocal, motor stre ngth normal upper and lower extremities, sensory exam intact SKIN: warm and dry, no cody picious lesions EXTREMITIES: no clubbing, cyanosi s, or edema MALE GENITOURINARY: uncircumcised , no t esticular mass , testes descended bilaterally RECTAL EXAM: normal tone, no exte rnal hemorrhoids, no masses palpable, prostate normal, stool guaiac negative ORAL CAVITY: mucosa moist
--- OUTSIDE RECORDS SUMMARY | 2024-02-01 04:30 | XMS_ITS ---
Author Organization Severo Phillips MD Address [address] [place], [place] [phone] Care Team Providers Care Prototype Carpenter Name Role Phone Severo Phillips Primary Care Provider [phone] Allergies Allergen (clinical drug ingredient) Drug/Non Drug Allergy documented on EMR Reaction Allergy Type Onset Date Status Iodine dye (uncoded) hives Allergy Active REASON FOR VISIT go over lab results, Audio [phone] Medications Medication SIG (Take, Route, Frequency, Duration) Notes Start Date End Date Status Fluorouracil 5 % 1 application to affected area Externally Twice a day 02/13/2017 Not-Takin g Simvastatin 40 MG TAKE 1 TABLET BY JERALD ONCE DAILY IN THE EVENING Active Ibuprofen 600 MG 1 tablet Orally Thre e times a day Not-Taking Cyclobenzaprine HCl 5 MG 1 tablet at bed time as needed Orally twice a day for 10 days 09/03/2021 Not-Taking Celecoxib 200 MG 1 capsule with food Orally Once a day for 30 day(s) 10/30/2018 Not-Taking Valsartan-hydroCHLOROthiaz gregory 320-25 MG TAKE 1 TABLET BY MOUTH ONCE DAILY Active prednisoLONE Acet-Moxifloxacin 1-0.5 % as directed Ophthalmic Active Flonase 50 MCG/ACT 1 spray in each nostril Nasally Once a day for 90 days 09/12/2017 Active Proscar 5 MG 1 tablet Orally Once a day Active Vital Signs Height 69 in 02/01/2024 Weight 201 lbs 02/01/2024 BMI 29.68 kg/m2 02/01/2024 weight is 201 at home BP not taken at home Encounters Encounter Location Date Provider Diagnosis Severo Phillips MD [address] [place] [address] [place] [phone] 02/01/2024 Severo Phillips Prediabetes R73.09 ; Elevated LFTs R79.89 and Pure hypercholesterolemia E78.00 Assessments Encounter Date Diagnosis (ICD Code) Assessment Notes Treatment Notes Treatment Clinical Notes Section Notes 02/01/2024 Prediabetes (ICD-10 - R73.09) needs todiet, noneed formedication at this time, will contiue to monitor 02/01/2024 Elevated LFTs (ICD-1 0 - R79.89) decrease wine, will continue to monitor 02/01/2024 Pure hypercholesterolemia (ICD-10 - E78.00) stable, will contiue current regiment Plan Of Treatment Medication Medication Name Sig Start Date Stop Date Notes Simvastatin 40 MG TAKE 1 TABLET BY JERALD TH ONCE DAILY IN THE EVENING Treatment Notes Assessment Notes Prediabetes needs todiet, noneed formedication at this time, will contiue to monitor Elevated LFTs decrease wine, will continue to monitor Pure hypercholesterolemia stable, will c ontiue current regiment Next Appt Details Follow Up: 3 Months, Reason: Provider Name:Severo sanchez, 02/03/2025 10:30:00 AM, [address] [place] [address], Suite [facility], [place], [place], [phone], Progress Notes * Travis POND GDOB: [birth year] (78 yo M)Acc No.[id number]:02/01/2024 Patient: Travis Wilkins Provider: Ayad Phillips MD :1945 A ge:78 Y S ex:Male Date:02/01/2024 Address:[facility] [address] [id number] Subjective: * Chief Complaints: * G o over lab resultsAudio [phone] * HPI: S ymptom(s): Telehealth L ocation of provider rendering services: [address], [address], L ocation of patient: a t address listed in demographics for today's visit, P atient identification confirmed using: N rufina, , SSN, Insurance information, T elehealth method: T elephone only. Patient not visible to care provider., C onsent: P atient verbally consented to treatment, Patient verbally consented to billing insurance company, Patient informed of any privacy concerns related to method of visit, T otal time spend talking with patient (minutes) 1 5. patient is a 78 yo male audio tlehealthvisit, here for follow up to go over recent labs. * ROS: G eneral/Constitutional: Denies C hills. D enies F atigue. D enies F ever. D enies H eadache. E NT: Patient denies d ecreased sense of smell , any loss of taste , sore throat. D enies S ore throat. R espiratory: Denies C ough. D enies S hortness of breath at rest. D enies S hortness of breath with exertion. G astrointestinal: Denies D iarrhea. D enies N ausea. M usculoskeletal: Patient denies m uscle aches. P eripheral Vascular: Patient denies r ed and blue toes. * Medical History: * Surgical History: * Hospitalization/Major Diagno stic Procedure: * Medications: T akingprednisoLONE Acet-Moxifloxacin 1-0.5 % Suspension as directed Ophthalmic Flonase 50 MCG/ACT Suspension 1 spray in each nostril Nasally Once a dayProscar 5 MG Tablet 1 tablet Orally Once a daySimvastatin 40 MG Tablet TAKE 1 TABLET BY MOUTH ONCE DAILY IN THE EVENING Valsartan-hydroCHLOROthiazide 320-25 MG Tablet TAKE 1 TABLET BY MOUTH ONCE DAILY Taking prednisoLONE Acet-Moxifloxacin 1-0.5 % Suspension as directed Ophthalmic Taking Flonase 50 MCG/ACT Suspension 1 spray in each nostril Nasally Once a dayTaking Proscar 5 MG Tablet 1 tablet Orally Once a dayTaking Simvastatin 40 MG Tablet [...] Objective: * Vitals: H t: 69, Wt:201, BMI:29.68 weight is 201 at home BP not taken at home. Assessment: * Assessment: 1. P rediabetes - R73.09 (Primary) 2 . E levated LFTs - R79.89 3 . P ure hypercholesterolemia - E78.00 Plan: * Treatment: 2. E levated LFTs Notes: decrease wine, will continue to monitor 3. P ure hypercholesterolemia Continue Simvastatin Tablet, 40 MG, TAKE 1 TABLET BY MOUTH ONCE DAILY IN THE EVENING. Notes: stable, will contiue current regiment * Procedure Codes: 9 9443 PHONE E/M BY PHYS 21-30 MIN * Follow Up: 3 Months * * Sign off status: Completed true * Provider: Ayad Phillips MD Date: 04/02/2023 Generated for Fidel guzmán/Aidee/Brenda on: 03/29/2024 12:14 PM EST History and Physical Notes * HPI (History of Present Illness) Category Sub-Category Detail Notes Category Not es Symptom(s) Telehealth Location of [facility] rendering services:: [address], [address] patient is a 78 yo male audio tlehealthvisit, here for follow up to go over recent labs Location of patient:: at address listed in demographics for today's visit Patient identification confirmed using:: Name, , SSN, Insurance information Telehealth method:: Telephone only. Lurdes ent not visible to care provider. Consent:: Patient verbally c onsented to treatment, Patient verbally consented to billing insurance company, Patient informed of any privacy concerns related to method of visit Total time spend talking with patient (m inutes): 15
--- OUTSIDE RECORDS SUMMARY | 2024-05-06 02:45 | XMS_ITS ---
Author Organization Severo Phillips MD Address [address] [place], [place] [phone] Care Team Providers Care Laundry Or Dry Cleaners Counter Clerk Name Role Phone Severo Phillips Primary Care Provider Results Component Value Reference Range Notes Liver Panel Reviewed date:05/06/2024 12:31:45 PM Interpretation: Performing Lab:[facility], [address] [place] [phone] Notes/Report: Bilirubin Total 0.7 0.0-1.0 mg/dL Bilirubin Direct 0.2 0.0-0.5 mg/dL Aspartate Amino Transferase 53 5-37 U/L Alanine Aminotransferase 78 0-40 U/L Total Protein 7.6 6.5-8.0 g/dL Albumin Level 3.8 3.5-5.0 g/dL Alkaline Phosphatase 54 39-117 U/L Glucose Fasting Reviewed date:05/06/2024 12:31:38 PM Interpretation: Performing Lab:[facility], [address] [place] [phone] Notes/Report: Glucose Fasting 155 60-99 mg/dL A fasting glucose of 126 mg/dl or greater on more than one occasion is considered diagnostic of diabetes. Hemoglobin A1c Reviewed date:05/06/2024 12:31:13 PM Interpretation: Performing Lab:[facility], [address] [place] [phone] Notes/Report: Hemoglobin A1c % 5.8 <6.0 % Hemoglobin A1C Reference Range Adults: 4.8 - 6.0 % Non diabetic: < 6.0 % Goal: < 7.0 % Additional Action Suggested: > 8.0 % Note: Hemoglobin A1c results are invalid for patients with abnormal amounts of HbF. Blood transfusions may impact the HbA1c concentration in the patient sample. Estimated Average Glucose 120 eAG = Estimated average glucose which is %A1C expressed as average glucose, using the formula of the S2M-Beennci Average Glucose study (ADAG), Diabetes Care, Vol.31,#8, Oct. 2007 REASON FOR VISIT LIVER PANEL, GLUCOSE FASTING, A1C Encounters Encounter Location Date Provider Diagnosis Severo Phillips MD [address] [place] [address] [place] [phone] 05/06/2024 Severo Phillips Prediabetes R73.09 Assessments Encounter Date Diagnosis (ICD Code) Assessment Notes Treatment Notes Treatment Clinical Notes Section Notes 05/06/2024 Prediabetes (ICD-10 - R73.09) Plan Of Treatment Next Appt Details Provider Name:Severo Luque ier, 02/03/2025 10:30:00 AM, [address] [place] [address], Suite [facility], [place], [place], [phone], Progress Notes * Travis POND GDOB: [birth year] (79 yo M)Acc No.[id number]:05/06/2024 Progress Note Patient: Travis JONES Provider: Ayad Phillips MD :1945 A ge:79 Y S ex:Male Date:05/06/2024 Address:[place] [address], [address] [place], [place] [phone] Subjective: * Chief Complaints: * 1 . LIVER PANEL, GLUCOSE FASTING, A1C. * Medical History: Objective: * Vitals: Assessment: * Assessment: 1. P rediabetes - R73.09 (Primary) Plan: * Treatment: * Procedure Codes: 3 6415 VENIPUNCT, ROUTINE* * * The named appointment provid er may or may not be the originator of this progress note, and it is not deemed complete until electronically signed by the appointment provider. Sign off status: Pending * Provider: Ayad Phillips MD Date: 0 05/06/2024 Generated for Fidel guzmán/Aidee/Brenda on: 1 03/29/2024 12:13 PM EST
--- OUTSIDE RECORDS SUMMARY | 2024-05-10 08:30 | XMS_ITS ---
Author Organization Severo Phillips MD Address [address] [place], [place] [phone] Care Team Providers Care Nail Mill Worker Name Role Phone Severo Phillips Primary Care Provider Allergies Allergen (clinical drug ingredient) Drug/Non Drug Allergy documented on EMR Reaction Allergy Type Onset Date Status Iodine dye (uncoded) hives Allergy Active REASON FOR VISIT 3 MO F/U, would like a handicap placard Medications Medication SIG (Take, Route, Frequency, Duration) Notes Start Date End Date Status Valsartan-hydroCHLOROthiaz gregory 320-25 MG TAKE 1 TABLET BY MOUTH ONCE DAILY Active Celecoxib 200 MG 1 capsule with food Orally Once a day for 30 day(s) 10/30/2018 Not-Taking Cyclobenzaprine HCl 5 MG 1 tablet at bed time as needed Orally twice a day for 10 days 09/03/2021 Not-Taking Ibuprofen 600 MG 1 tablet Orally Thre e times a day Not-Taking Fluorouracil 5 % 1 application to affected area Externally Twice a day 02/13/2017 Not-Esme g prednisoLONE Acet-Moxifloxacin 1-0.5 % as directed Ophthalmic Active Escitalopram Oxalate 10 MG 1 tablet Oral ly Once a day for 30 days 05/10/2024 Active Proscar 5 MG 1 tablet Orally Once a day Active Flonase 50 MCG/ACT 1 spray in each nostril Nasally Once a day for 90 days 09/12/2017 Active Timolol Hemihydrate 0.5 % 1 drop into af fected eye Ophthalmic Once a day Active Simvastatin 40 MG TAKE 1 TABLET BY JERALD TH ONCE DAILY IN THE EVENING Active Vital Signs Blood pressure systolic 172 mm Hg 05/10/19 25 Blood pressure diastolic 80 mm Hg 025 Height 69 in 05/10/2024 Weight 200 lbs 05/10/2024 BMI 29.53 kg/m2 05/10/2024 Encounters Encounter Location Date Provider Diagnosis Severo Phillips MD [address] [place] [address] [place] [phone] 05/10/2024 Severo Phillips Essential hypertensi on I10 ; Prediabetes R73.09 ; Pure hypercholesterolemia E78.00 ; Elevated LFTs R79.89 ; Anxiety F41.9 and Excessive cerumen in left ear canal H61.22 Assessments Encounter Date Diagnosis (ICD Code) Assessment Notes Treatment Notes Treatment Clinical Notes Section Notes 05/10/2024 Essential hypertensi on (ICD-10 - I10) stable, will continue current regiment 05/10/2024 Prediabetes (ICD-10 - R73.09) stable, no need for medication at this time 05/10/2024 Pure hypercholesterolemia (ICD-10 - E78.00) stable, will continue current regiment 05/10/2024 Elevated LFTs (ICD-1 0 - R79.89) will retry lft's after lent 05/10/2024 Anxiety (ICD-10 - F41.9) will try ssi, patient verbalized understanding of medicatio and directions for use 05/10/2024 Excessive cerumen in left ear canal (ICD-10 - H61.22) removed without issue Plan Of Treatment Medication Medication Name Sig Start Date Stop Date Notes Valsartan-hydroCHLOROthiazid e 320-25 MG TAKE 1 TABLET BY MOUTH ONCE DAILY Escitalopram Oxalate 10 MG 1 tablet Oral ly Once a day for 30 days 05/10/2024 Simvastatin 40 MG TAKE 1 TABLET BY JERALD TH ONCE DAILY IN THE EVENING Treatment Notes Assessment Notes Essential hypertension stable, will cont inue current regiment Prediabetes stable, no need for medication at this time Pure hypercholesterolemia stable, will c ontinue current regiment Elevated LFTs will retry lft's aft er lent Anxiety will try ssi, patien t verbalized understanding of medicatio and directions for use Excessive cerumen in left ear canal som ashley without issue Next Appt Details Provider Name:Severo Luque ier, 02/03/2025 10:30:00 AM, [address], [address], [place], [place], [phone], Procedure Notes * Category Sub-Category Detail Notes Cerumen removal Procedure under direct vis ualization, left ear, irrigated with water/H2O2 Post-procedure Pt tolerated procedu re well Progress Notes * HEIDYTravis GDOB: [birth year] (79 yo M)Acc No.[id number]:05/10/2024 Progress Notes Patient: Travis JONES Provider: Ayad Phillips MD :1945 A ge:79 Y S ex:Male Date:05/10/2024 Address:[place] [address], [address] [place] [address], [place] [phone] Subjective: * Chief Complaints: * 3 MO F/UWould like a handicap placard * HPI: S ymptom(s): patient is a 79 yo male here for 3 month follow up visit, would like handicap card because he is unsteady. . has to use the rails to get up to the altar. * ROS: G eneral/Constitutional: Denies C hills. D enies F atigue. D enies F ever. D enies H eadache. E NT: Patient denies d ecreased sense of smell, any loss of taste, sore throat. P atient complaining of d ecreased hearing today. D enies S ore throat. R espiratory: Denies C ough. D enies S hortness of breath at rest. D enies S hortness of breath with exertion. G astrointestinal: Denies D iarrhea. D enies N ausea. M usculoskeletal: Patient denies m uscle aches. P eripheral Vascular: Patient denies r ed and blue toes. P sychiatric: Patient complaining of f eeling anxious at night and not sleeping. c omplaining of anxiety. * Medical History: * Surgical History: * Hospitalization/Major Diagno stic Procedure: * Medications: T akingTimolol Hemihydrate 0.5 % Solution 1 drop into affected eye Ophthalmic Once a day prednisoLONE Acet-Moxifloxacin 1-0.5 % Suspension as directed Ophthalmic Flonase 50 MCG/ACT Suspension 1 spray in each nostril Nasally Once a day Proscar 5 MG Tablet 1 tablet Orally Once a day Valsartan-hydroCHLOROthiazide 320-25 MG Tablet TAKE 1 TABLET BY MOUTH ONCE DAILY Simvastatin 40 MG Tablet TAKE 1 TABLET BY MOUTH ONCE DAILY IN THE EVENING Taking Timolol Hemihydrate 0.5 % Solution 1 drop into affected eye Ophthalmic Once a day Taking prednisoLONE Acet-Moxifloxacin 1-0.5 % Suspension as directed Ophthalmic Taking Flonase 50 MCG/ACT Suspension 1 spray in each nostril Nasally Once a day Taking Proscar 5 MG Tablet 1 tablet Orally Once a day Taking Valsartan-hydroCHLOROthiazide 320-25 MG Tablet TAKE 1 TABLET BY MOUTH ONCE DAILY Taking Simvastatin 40 MG Tablet TAKE 1 TABLET BY MOUTH ONCE DAILY IN THE EVENING Not-Taking/PRNCyclobenzaprine HCl 5 MG Tablet 1 tablet at bedtime as needed Orally twice a day Celecoxib 200 MG Capsule 1 capsule with food Orally Once a day Fluorouracil 5 % Cream 1 application to affected area Externally Twice a day Ibuprofen 600 MG Tablet 1 tablet Orally Three times a day Medication List reviewed and reconciled with the patientNot-Taking/PRN Cyclobenzaprine HCl 5 MG Tablet 1 tablet at bedtime as needed Orally twice a day Not-Taking/PRN Celecoxib 200 MG Capsule 1 capsule with food Orally Once a day Not-Taking/PRN Fluorouracil 5 % Cream 1 application to affected area Externally Twice a day Not-Taking/PRN Ibuprofen 600 MG Tablet 1 tablet Orally Three times a day Medication List reviewed and reconciled with the patient * Allergies: I odine dye: hivesyes[Allergies Verified] Objective: * Vitals: H t: 69, Wt: 200, BMI:29.53, BP:172/80, Repeat BP:150/80, Wt-k.72. * Examination: G eneral Examination: GENERAL APPEARANCE: a lert, well hydrated, in no distress.? HEAD: n ormocephalic. EARS: l eft ear with cerumen impaction. SKIN: g ood turgor. HEART: r egular rate and rhythm, no murmurs, rubs, gallops.? LUNGS: n o wheezes, rales, rhonchi, good air movement, clear to auscultation bilaterally. Assessment: * Assessment: 1. E ssential hypertension - I10 (Primary) 2 . P rediabetes - R73.09 ? 3 . P ure hypercholesterolemia - E78.00 4 . E levated LFTs - R79.89 5 . A nxiety - F41.9 6 . E xcessive cerumen in left ear canal - H61.22 Plan: * Treatment: 2. P rediabetes Notes: stable, no need for medication at this time 3. P ure hypercholesterolemia Continue Simvastatin Tablet, 40 MG, TAKE 1 TABLET BY MOUTH ONCE DAILY IN THE EVENING. Notes: stable, will continue current regiment 4. E levated LFTs Notes: will retry lft's after lent 5. A nxiety Start Escitalopram Oxalate Tablet, 10 MG, 1 tablet, Orally, Once a day, 30 days, 30, Refills 3.? Notes: will try ssi, patient verbalized understanding of medicatio and directions for use ? 6. E xcessive cerumen in left ear canal Notes: removed without issue * Procedures: C erumen removal: Procedure u nder direct visualization, left ear, irrigated with water/H2O2. P ost-procedure P t tolerated procedure well. * Procedure Codes: G 2211 Complex e/m visit add on * * Sign off status: Completed true * Provider: Ayad Phillips MD Date: 0 05/10/2024 Generated for Fidel guzmán/Aidee/Elidaitting on: 03/29/2024 12:13 PM EST History and Physical Notes * HPI (History of Present Illness) Category Sub-Category Detail Notes Category Not es Symptom(s) patient is a 79 yo male here for 3 month follow up visit, would like handicap card because he is unsteady. . has to use the rails to get up to the altar. Examination Category Sub-Category Detail Notes Category Not es General Examination GENERAL APPEARANCE: alert, w ell hydrated, in no distress HEAD: normocephalic EARS: left ear with cerume n impaction HEART: regular rate and rhy thm, no murmurs, rubs, gallops LUNGS: no wheezes, rales, r honchi, good air movement, clear to auscultation bilaterally SKIN: good turgor
--- OUTSIDE RECORDS SUMMARY | 2024-05-14 03:46 | XMS_ITS ---
Author Organization Severo Phillips MD Address [address] [place] [phone] Care Team Providers Care Digital Media Director Name Role Phone Severo Phillips Primary Care Provider REASON FOR VISIT ESCITALOPRAM NEEDS TO BE SENT Medications Medication SIG (Take, Route, Frequency, Duration) Notes Start Date End Date Status Escitalopram Oxalate 10 MG 1 tablet Oral ly Once a day for 30 days 05/10/2024 Active Encounters Encounter Location Date Provider Diagnosis Severo Phillips MD [address] [facility] [address] [place] [phone] 05/14/2024 Severo Phillips Anxiety F41.9 Assessments Encounter Date Diagnosis (ICD Code) Assessment Notes Treatment Notes Treatment Clinical Notes Section Notes 05/14/2024 Anxiety (ICD-10 - F41.9) Plan Of Treatment Medication Medication Name Sig Start Date Stop Date Notes Escitalopram Oxalate 10 MG 1 tablet Oral ly Once a day for 30 days 05/10/2024 Next Appt Details Provider Name:Severo sanchez, 02/03/2025 10:30:00 AM, [address] [facility], [address] [place] [address], [phone], Progress Notes * HEIDYTravis GDOB: [birth year] (79 yo M)Acc No.[id number]:05/14/2024 Patient: Travis JONES :1945 A ge:79 Y S ex:Male Address:[place] [address], [address] [place] [address] * Refills Continue Escitalopram Oxalate Tablet, 10 MG, Orally, 30, 1 tablet, Once a day, 30 days, Refills=5 * true * Date: Generated for Fidel guzmán/Aidee/Elidaitting on: 03/29/2024 12:12 PM EST
--- OUTSIDE RECORDS SUMMARY | 2024-08-15 02:30 | XMS_ITS ---
Author Organization Severo Phillips MD Address [address] [place] [phone] Care Team Providers Care Control Tower Radio Operator Name Role Phone Severo Phillips Primary Care Provider REASON FOR VISIT fasting lipids Encounters Encounter Location Date Provider Diagnosis Severo Phillips MD [address] [place] [phone] 08/15/2024 Severo Phillips Prediabetes R73.09 a nd Pure hypercholesterolemia E78.00 Assessments Encounter Date Diagnosis (ICD Code) Assessment Notes Treatment Notes Treatment Clinical Notes Section Notes 08/15/2024 Prediabetes (ICD-10 - R73.09) 08/15/2024 Pure hypercholesterolemia (ICD-10 - E78.00) Plan Of Treatment Pending Test Test Name Order Date Liver Panel 08/15/2024 Glucose Fasting 08/15/2024 Lipid Panel with Reflex 08/15/2024 Hemoglobin A1c 08/15/2024 Next Appt Details Provider Name:Severo sanchez, 02/03/2025 10:30:00 AM, [address], Suite [facility], [place], [place], [phone], Progress Notes * Travis POND GDOB: [birth year] (79 yo M)Acc No.[id number]:08/15/2024 Progress Note Patient: Travis JONES Provider: Ayad Phillips MD :1945 A ge:79 Y S ex:Male Date:08/15/2024 Address:[place] [address], [address] [place] [address] Subjective: * Chief Complaints: * 1 . Fasting lipids. * Medical History: Objective: * Vitals: Assessment: * Assessment: 1. P rediabetes - R73.09 (Primary) 2 . P ure hypercholesterolemia - E78.00? Plan: * Treatment: 2. P ure hypercholesterolemia L AB: Liver Panel L AB: Glucose Fasting L AB: Lipid Panel with Reflex L AB: Hemoglobin A1c * * The named appointment provid er may or may not be the originator of this progress note, and it is not deemed complete until electronically signed by the appointment provider. Sign off status: Pending * Provider: Ayad Phillips MD Date: 0 08/15/2024 Generated for Fidel guzmán/Aidee/Elidaitting on: 1 03/29/2024 12:13 PM EST
--- OUTSIDE RECORDS SUMMARY | 2024-08-22 05:15 | XMS_ITS ---
Author Organization Severo Phillips MD Address [address] [place], [place] [id number] Care Team Providers Care Receiver Stocker Name Role Phone Severo Phillips Primary Care Provider Allergies Allergen (clinical drug ingredient) Drug/Non Drug Allergy documented on EMR Reaction Allergy Type Onset Date Status Iodine dye (uncoded) hives Allergy Active REASON FOR VISIT 6 month Medications Medication SIG (Take, Route, Frequency, Duration) Notes Start Date End Date Status Celecoxib 200 MG 1 capsule with food Orally Once a day for 30 day(s) 10/30/2018 Not-Taking Cyclobenzaprine HCl 5 MG 1 tablet at bed time as needed Orally twice a day for 10 days 09/03/2021 Not-Taking Ibuprofen 600 MG 1 tablet Orally Thre e times a day Not-Taking Fluorouracil 5 % 1 application to affected area Externally Twice a day 02/13/2017 Dao-Esme munoz Escitalopram Oxalate 10 MG 1 tablet Oral ly Once a day for 30 days 05/10/2024 Active Simvastatin 40 MG TAKE 1 TABLET BY JERALD TH ONCE DAILY IN THE EVENING Active Valsartan-hydroCHLOROthiaz gregory 320-25 MG TAKE 1 TABLET BY MOUTH ONCE DAILY Active prednisoLONE Acet-Moxifloxacin 1-0.5 % as directed Ophthalmic Active Proscar 5 MG 1 tablet Orally Once a day Active Flonase 50 MCG/ACT 1 spray in each nostril Nasally Once a day for 90 days 09/12/2017 Active Timolol Hemihydrate 0.5 % 1 drop into af fected eye Ophthalmic Once a day Active Vital Signs Blood pressure systolic 162 mm Hg 08/23/19 25 Blood pressure diastolic 78 mm Hg 025 Height 69 in 08/22/2024 Weight 197 lbs 08/22/2024 BMI 29.09 kg/m2 08/22/2024 weight is down 3 pounds sin e 05-10-24 will check bp at home Encounters Encounter Location Date Provider Diagnosis Severo Phillips MD [address] [place] [address] [place] [phone] 08/22/2024 Severo Phillips Prediabetes R73.09 ; Essential hypertension I10 and Pure hypercholesterolemia E78.00 Assessments Encounter Date Diagnosis (ICD Code) Assessment Notes Treatment Notes Treatment Clinical Notes Section Notes 08/22/2024 Prediabetes (ICD-10 - R73.09) well controlled 08/22/2024 Essential hypertensi on (ICD-10 - I10) is a little high but is going to check it at home 08/22/2024 Pure hypercholesterolemia (ICD-10 - E78.00) doing well on meds Plan Of Treatment Treatment Notes Assessment Notes Prediabetes well controlled Essential hypertension is a little high but is going to check it at home Pure hypercholesterolemia doing well on meds Next Appt Details Provider Name:Severo Luque ier, 02/03/2025 10:30:00 AM, [address] [place] [address], Suite [facility], [place], [place], [phone], Progress Notes * Travis POND GDOB: [birth year] (79 yo M)Acc No.[id number]:08/22/2024 Progress Notes Patient: Travis JONES Provider: Ayad Phillips MD :1945 A ge:79 Y S ex:Male Date:08/22/2024 Address:[facility] [address] [phone] Subjective: * Chief Complaints: * 6 month * HPI: S ymptom(s): patient is a 79 yo male here for 6 month follow up visit. * ROS: G eneral/Constitutional: Denies C hills. D enies F atigue. D enies F ever. D enies H eadache. E NT: Denies S ore throat. R espiratory: Denies C ough. D enies S hortness of breath at rest. D enies S hortness of breath with exertion. G astrointestinal: Denies D iarrhea. D enies N ausea. * Medical History: * Surgical History: * [...] BY MOUTH ONCE DAILY IN THE EVENING Escitalopram Oxalate 10 MG Tablet 1 tablet Orally Once a day Taking Timolol Hemihydrate 0.5 % Solution 1 [...] MOUTH ONCE DAILY IN THE EVENING Taking Escitalopram Oxalate 10 MG Tablet 1 tablet Orally Once a day Not-Taking/PRNCyclobenzaprine HCl 5 MG Tablet 1 tablet [...] Objective: * Vitals: H t: 69, Wt: 197, BMI:29.09, BP:162/78, Repeat BP:160/80, Wt-k.36. weight is down 3 pounds since 05-10-24 will check bp at home. * Examination: G eneral Examination: GENERAL APPEARANCE: w ell developed, well nourished, male.? SKIN: g ood turgor. HEART: n o murmurs, rubs, gallops, regular rate and rhythm.? Assessment: * Assessment: 1. P rediabetes - R73.09 (Primary) 2 . E ssential hypertension - I10 ? 3 . P ure hypercholesterolemia - E78.00 Plan: * Treatment: 2. E ssential hypertension Notes: is a little high but is going to check it at home 3. P ure hypercholesterolemia Notes: doing well on meds * Procedure Codes: * * Sign off status: Completed true * Provider: Ayad Phillips MD Date: 0 08/22/2024 Generated for Fidel guzmán/Aidee/Elianasmitting on: 03/29/2024 12:14 PM EST History and Physical Notes * HPI (History of Present Illness) Category Sub-Category Detail Notes Category Not es Symptom(s) patient is a 79 yo male here for 6 month follow up visit Examination Category Sub-Category Detail Notes Category Not es General Examination GENERAL APPEARANCE: well dev eloped, well nourished, male HEART: no murmurs, rubs, ga llops, regular rate and rhythm SKIN: good turgor
--- OUTSIDE RECORDS SUMMARY | 2025-01-27 02:30 | XMS_ITS ---
Author Organization Severo Phillips MD Address [address] [place], [place] [phone] Care Team Providers Care Song Writer Name Role Phone Severo Phillips Primary Care Provider Results Component Value Reference Range Notes Complete Blood Count Auto Di ff (Not yet reviewed by provider) Interpretation: Performing Lab:[facility], [address] [place] [phone] Notes/Report: White Blood Count 6.1 4.8-10.8 X10*3/uL Red Blood Count 4.17 4.60-5.80 X10*6/uL Hemoglobin 14.5 14.0-18.0 g/dl Hematocrit 42.2 42.0-52.0 % Mean Corpuscular Volume 101.2 80.0-98.0 fL Mean Corpuscular Hemoglobin 34.8 27.0-33.0 pg Mean Corpuscular HGB Conc 34.4 31.0-36.0 g/dl Red Cell Distribution Width 11.9 11.0-16.0 % Platelet Count 176 160-400 X10*3/uL Mean Platelet Volume 10.2 9.4-12.4 fL Neutrophils Percent Auto 62.6 45-73 % Imm Gran Pct Auto 0.3 0.0-0.4 % Lymphocytes Percent Auto 24.3 20-40 % Monocytes Percent Auto 8.7 2-11 % Eosinophils Percent Auto 3.6 0-4 % Basophils Percent Auto 0.5 0-2 % NRBC Pct Auto 0.0 0.0-0.2 /100WBC Neutrophils Absolute Auto 3.8 2.0-8.3 x10*3/u L Imm Gran Abs Auto 0.02 0.00-0.03 X10*3/uL Lymphocytes Absolute Auto 1.5 1.2-4.9 X10*3/u L Monocytes Absolute Auto 0.5 0.1-1.2 X10*3/uL Eosinophils Absolute Auto 0.2 0.0-0.4 X10*3/u L Basophils Absolute Auto 0.0 0.0-0.2 X10*3/uL NRBC Abs Auto 0.000 0.0-0.012 X10*3/uL Comprehensive [place]. Panel Fa st (Not yet reviewed by provider) Interpretation: Performing Lab:[facility], [address] [place] [phone] Notes/Report: Sodium 138 135-145 mmol/L Potassium 3.9 3.3-5.1 mmol/L Chloride 104 96-108 mmol/L Carbon Dioxide 27 22-29 mmol/L Anion Gap 11 12-20 Blood Urea Nitrogen 11 9-16 mg/dL Creatinine 0.68 0.5-1.4 mg/dL Estimated Glomerular Filt Rate > 60 Chronic Kidney Disease: Estimated GFR < 60 mL/min/1.73m2 Severe Kidney Disease: Estimated GFR < 15 mL/min/1.73m2 Glucose Fasting 153 60-99 mg/dL A fasting glucose of 126 mg/dl or greater on more than one occasion is considered diagnostic of diabetes. Calcium 9.0 8.4-10.2 mg/dL Bilirubin Total 0.9 0.0-1.0 mg/dL Aspartate Amino Transferase 55 5-37 U/L Alanine Aminotransferase 66 0-40 U/L Total Protein 7.5 6.5-8.0 g/dL Albumin Level 3.9 3.5-5.0 g/dL Alkaline Phosphatase 65 39-117 U/L UA ClnCatch+Micro w/rflx Cul t (Not yet reviewed by provider) Interpretation: Performing Lab:[facility], [address] [place] [phone] Notes/Report: Urine, Clean Catch Color Urine Dark Yellow Appearance Urine Clear PH 7.5 5.0-9.0 Glucose Urine UA Negative Negative mg/dL Urine Blood Negative Negative Specific [place] - Urine 1.020 1.005-1.025 Urine Protein Trace Neg-Trace mg/dL Urine Ketones Negative Negative mg/dL Nitrite Urine Negative Negative Leukocyte Esterase Urine Small (1+) Negative RBC Urine 0-2 0-2 /HPF WBC Urine 0-5 0-5 /HPF Squamous Epithelial Cell Urine 0-2 0-2 /HPF Bacteria Urine None Seen None Seen Hyaline Casts Urine 0-2 0-2 /LPF Lipid Panel Reviewed date:01/27/2025 11:45:22 AM Interpretation: Performing Lab:[facility], [address] [place] [phone] Notes/Report: Triglycerides 70 <150 mg/dL Desirable Triglyceride: less than 150 mg/dL Borderline High Triglyceride 150-199 mg/dL High Triglyceride: 200-499 mg/dL Very High Triglyceride: greater than or equal to 5OO mg/dL Cholesterol 110 <200 mg/dL Desirable Cholesterol: less than 200 mg/dL Borderline High Cholesterol: 200-239 mg/dL High Cholesterol: greater than 239 mg/dL LDL Cholesterol Calculated 52 <100 mg/dL Desirable LDL: less than 100 mg/dL Near Optimal/Above Optimal LDL: 110-129 mg/dL Borderline High LDL: 130-159 mg/dL High LDL: 160-189 mg/dL Very High LDL: greater than or equal to 190 mg/dL HDL Cholesterol 44 >40 mg/dL Desirable HDL: greater than 40 mg/dL Note: This HDL assay may give artificially low results in patients with liver disease. PSA,Total (Free>4and<10) Reviewed date:01/27/2025 11:46:57 AM Interpretation: Performing Lab:[facility], [address] [place] [phone] Notes/Report: PSA,Total (Free>4and<10) 1.50 0.00-4.00 ng/mL A Free PSA was not performed: The percentage of Free PSA can be used to enhance the differentiation of prostate cancer from benign prostatic disease in subjects whose PSA levels are between 4.0 and 10.0 ng/mL. For subjects whose PSA levels are below 4.0 or above 10.0 ng/mL, the risk of prostate cancer is determined on the basis of the PSA alone. Therefore the % Free PSA is recommended only for those subjects whose PSA levels are between 4.0 and 10.0 ng/mL. PSA methodology: Jeter Alinity i Chemiluminescent Microparticle Immunoassay (CMIA) Microalbumin, Random Reviewed date:01/27/2025 12:01:29 PM Interpretation: Performing Lab:[address] [phone] Notes/Report: Creatinine Urine 201.31 Microalbumin Urine 20.0 Microalbum/Creatinine Ratio Ur 9.9 <30 ug/mg cr Albumin/Creatinine Ratio Reference Ranges: Normal: < 30 ug/mg creatinine Microalbuminuria: 30 - 300 ug/mg creatinine Clinical Albuminuria: > 300 ug/mg creatinine Hemoglobin A1c Reviewed date:01/27/2025 11:45:30 AM Interpretation: Performing Lab:[address] [phone] Notes/Report: Hemoglobin A1c % 5.7 <6.0 % Hemoglobin A1C Reference Range Adults: 4.8 - 6.0 % Non diabetic: < 6.0 % Goal: < 7.0 % Additional Action Suggested: > 8.0 % Note: Hemoglobin A1c results are invalid for patients with abnormal amounts of HbF. Blood transfusions may impact the HbA1c concentration in the patient sample. Estimated Average Glucose 117 eAG = Estimated average glucose which is %A1C expressed as average glucose, using the formula of the [id number] Average Glucose study (ADAG), Diabetes Care, Vol.31,#8, Oct. 2007 REASON FOR VISIT yearly fasting labs Immunizations Vaccine Route Administration Date Status Comme nts Influenza High Dose IM Intramuscular 01/27/2025 Administer ed Encounters Encounter Location Date Provider Diagnosis Severo Phillips MD [address] [place] [address] Drive [address] [place], [place] [phone] 01/27/2025 Severo Phillips Essential hypertensi on I10 ; Prediabetes R73.09 ; BPH (benign prostatic hyperplasia) N40.0 and Encounter for administration of vaccine Z23 Assessments Encounter Date Diagnosis (ICD Code) Assessment Notes Treatment Notes Treatment Clinical Notes Section Notes 01/27/2025 Essential hypertension (ICD-10 - I10) 01/27/2025 Prediabetes (ICD-10 - R73.09) 01/27/2025 BPH (benign prostatic hyperplasia) (ICD-10 - N40.0) 01/27/2025 Encounter for administration of vaccine (ICD-10 - Z23) Plan Of Treatment Pending Test Test Name Order Date Complete Blood Count Auto Diff Comprehensive [place]. Panel Fast UA ClnCatch+Micro w/rflx Cult 01/27/2025 Next Appt Details Provider Name:Severo Luque ier, 02/03/2025 10:30:00 AM, [address] [place] [address], [address], [place], [place], [phone], Progress Notes * ALEXISTravis TOVAR GDOB: [birth year] (79 yo M)Acc No.[id number]:01/27/2025 Progress Note Patient: Travis JONES Provider: Ayad Phillips MD :1945 A ge:79 Y S ex:Male Date:01/27/2025 Address:[place] [address], [address] [place] [address] Subjective: * Chief Complaints: * 1 . Yearly fasting labs. * Medical History: Objective: * Vitals: Assessment: * Assessment: 1. E ssential hypertension - I10 (Primary) 2 . P rediabetes - R73.09 ? 3 . B PH (benign prostatic hyperplasia) - N40.0 4 . E ncounter for administration of vaccine - Z23 Plan: * Treatment: 2. P rediabetes L AB: Complete Blood Count Auto Diff (Collection Date & Time - 01/27/2025 07:30 AM) L AB: Comprehensive [place]. Panel Fast (Collection Date & Time - 01/27/2025 07:30 AM) L AB: UA ClnCatch+Micro w/rflx Cult (Collection Date & Time - 01/27/2025 07:30 AM) L AB: Lipid Panel (Collection Date & Time - 01/27/2025 07:30 AM) L AB: PSA,Total (Free>4and<10) (Collection Date & Time - 01/27/2025 07:30 AM) L AB: Microalbumin, Random (Collection Date & Time - 01/27/2025 07:30 AM) L AB: Hemoglobin A1c (Collection Date & Time - 01/27/2025 07:30 AM) 3. B PH (benign prostatic hyperplasia) L AB: Complete Blood Count Auto Diff (Collection Date & Time - 01/27/2025 07:30 AM) L AB: Comprehensive [place]. Panel Fast (Collection Date & Time - 01/27/2025 07:30 AM) L AB: UA ClnCatch+Micro w/rflx Cult (Collection Date & Time - 01/27/2025 07:30 AM) L AB: Lipid Panel (Collection Date & Time - 01/27/2025 07:30 AM) L AB: PSA,Total (Free>4and<10) (Collection Date & Time - 01/27/2025 07:30 AM) L AB: Microalbumin, Random (Collection Date & Time - 01/27/2025 07:30 AM) L AB: Hemoglobin A1c (Collection Date & Time - 01/27/2025 07:30 AM) * Immunizations: Influenza High Dose : 0.5 mL (Dose No:1) (Route: Intramuscular) given by Ashley Whittington , Office Staff on Left Deltoid * Procedure Codes: 3 6415 VENIPUNCT, ROUTINE*, 28978 FLU VACC PRSV FREE INC ANTIG, G0008 ADMN FLU VAC NO FEE SCHED SAME DAY * * The named appointment provid er may or may not be the originator of this progress note, and it is not deemed complete until electronically signed by the appointment provider. Sign off status: Pending * Provider: Aayd Phillips MD Date: 03/29/2024 Generated for Fidel guzmán/Aidee/Brenda on: 03/29/2024 12:14 PM EST
[2025-01-27 10:17] LABS: MANUAL DIFF FLAG NO
[2025-01-27 10:43] LABS: Hematocrit 42.2 % (42.0-52.0); Hemoglobin 14.5 g/dl (14.0-18.0); Imm Gran Abs Auto 0.02 X10*3/uL (0.00-0.03); Imm Gran Pct Auto 0.3 % (0.0-0.4); Lymphocytes Absolute Auto 1.5 X10*3/uL (1.2-4.9); Mean Corpuscular HGB Conc 34.4 g/dl (31.0-36.0); Mean Corpuscular Hemoglobin 34.8 pg (27.0-33.0); Mean Corpuscular Volume 101.2 fL (80.0-98.0); NRBC Abs Auto 0.000 X10*3/uL (0.0-0.012); NRBC Pct Auto 0.0 /100WBC (0.0-0.2); Platelet Count 176 X10*3/uL (160-400); Red Blood Count 4.17 X10*6/uL (4.60-5.80); White Blood Count 6.1 X10*3/uL (4.8-10.8)
[2025-01-27 10:56] LABS: Appearance Urine Clear; Glucose Urine UA Negative (Negative); PH 7.5 (5.0-9.0); Specific Gravity - Urine 1.020 (1.005-1.025); UMIC TRIGGER UACC YES
[2025-01-27 10:58] LABS: Alanine Aminotransferase 66 U/L (0-40); Albumin Level 3.9 g/dL (3.5-5.0); Alkaline Phosphatase 65 U/L (39-117); Anion Gap 11 (12-20); Aspartate Amino Transferase 55 U/L (5-37); Blood Urea Nitrogen 11 mg/dL (9-16); Calcium 9.0 mg/dL (8.4-10.2); Carbon Dioxide 27 mmol/L (22-29); Chloride 104 mmol/L (96-108); Cholesterol 110 mg/dL (<200); Estimated Glomerular Filt Rate > 60; HDL Cholesterol 44 mg/dL (>40); Potassium 3.9 mmol/L (3.3-5.1); Sodium 138 mmol/L (135-145); Total Protein 7.5 g/dL (6.5-8.0); Triglycerides 70 mg/dL (<150)
[2025-01-27 11:13] LABS: Microalbum/Creatinine Ratio Ur 9.9 ug/mg cr (<30)
[2025-01-27 11:33] LABS: PSA,Total (Free>4and<10) 1.50 ng/mL (0.00-4.00)
[2025-01-27 11:59] LABS: UACC Culture Trigger YES
--- OUTSIDE RECORDS SUMMARY | 2025-01-27 12:14 | XMS_ITS | Patient Health Record ---
Author Organization Severo Phillips MD Address [address] [place], [place] [id number] Care Team Providers Care Furniture Finisher Name Role Phone Severo Phillips Primary Care Provider Allergies Allergen (clinical drug ingredient) Drug/Non Drug Allergy documented on EMR Reaction Allergy Type Onset Date Status Iodine dye (uncoded) hives Allergy Active Results Component Value Reference Range Notes Liver Panel Reviewed date:05/06/2024 12:31:45 PM Interpretation: Performing Lab:[facility], [address] [place] [phone] Notes/Report: Bilirubin Total 0.7 0.0-1.0 mg/dL Bilirubin Direct 0.2 0.0-0.5 mg/dL Aspartate Amino Transferase 53 5-37 U/L Alanine Aminotransferase 78 0-40 U/L Total Protein 7.6 6.5-8.0 g/dL Albumin Level 3.8 3.5-5.0 g/dL Alkaline Phosphatase 54 39-117 U/L Glucose Fasting Reviewed date:05/06/2024 12:31:38 PM Interpretation: Performing Lab:[address] [phone] Notes/Report: Glucose Fasting 155 60-99 mg/dL A fasting glucose of 126 mg/dl or greater on more than one occasion is considered diagnostic of diabetes. Hemoglobin A1c Reviewed date:05/06/2024 12:31:13 PM Interpretation: Performing Lab:[facility], [address] [place] [phone] Notes/Report: Hemoglobin A1c % 5.8 <6.0 % [...] average glucose, using the formula of the R8M-Cppefhq Average Glucose study (ADAG), Diabetes Care, Vol.31,#8, Oct. 2007 Complete Blood Count Auto Di ff (Not yet reviewed by provider) Interpretation: Performing Lab:[facility], [address] [place] [phone] Notes/Report: White Blood Count 6.1 4.8-10.8 X10*3/uL [...] NRBC Abs Auto 0.000 0.0-0.012 X10*3/uL Comprehensive [place]. Panel Fa st (Not yet reviewed by provider) Interpretation: Performing Lab:[facility], [address] [place] [phone] Notes/Report: Sodium 138 135-145 mmol/L Potassium 3.9 [...] (Not yet reviewed by provider) Interpretation: Performing Lab:[facility], [address] [place] [phone] Notes/Report: Urine, Clean Catch Color Urine Dark Yellow Appearance Urine Clear PH 7.5 5.0-9.0 Glucose Urine UA Negative Negative mg/dL Urine Blood Negative Negative Specific [place] - Urine 1.020 1.005-1.025 Urine Protein Trace Neg-Trace mg/dL Urine Ketones Negative Negative mg/dL Nitrite Urine Negative Negative Leukocyte Esterase Urine Small (1+) Negative RBC Urine 0-2 0-2 /HPF WBC Urine 0-5 0-5 /HPF Squamous Epithelial Cell Urine 0-2 0-2 /HPF Bacteria Urine None Seen None Seen Hyaline Casts Urine 0-2 0-2 /LPF Lipid Panel Reviewed date:01/27/2025 11:45:22 AM Interpretation: Performing Lab:[address] [phone] Notes/Report: Triglycerides 70 <150 mg/dL Desirable Triglyceride: [...] (Free>4and<10) Reviewed date:01/27/2025 11:46:57 AM Interpretation: Performing Lab:[address] [phone] Notes/Report: PSA,Total (Free>4and<10) 1.50 0.00-4.00 ng/mL A [...] between 4.0 and 10.0 ng/mL. PSA methodology: ClickShift Chemiluminescent Microparticle Immunoassay (CMIA) Microalbumin, Random Reviewed date:01/27/2025 12:01:29 PM Interpretation: Performing Lab:[facility], [address] [place] [phone] Notes/Report: Creatinine Urine 201.31 Microalbumin Urine 20.0 Microalbum/Creatinine Ratio Ur 9.9 <30 ug/mg cr Albumin/Creatinine Ratio Reference Ranges: Normal: < 30 ug/mg creatinine Microalbuminuria: 30 - 300 ug/mg creatinine Clinical Albuminuria: > 300 ug/mg creatinine Hemoglobin A1c Reviewed date:01/27/2025 11:45:30 AM Interpretation: Performing Lab:[facility], [address] [place] [phone] Notes/Report: Hemoglobin A1c % 5.7 <6.0 % [...] average glucose, using the formula of the G4P-Moznlid Average Glucose study (ADAG), Diabetes Care, Vol.31,#8, Oct. 2007 Occult Blood, Stool, Guaiac Reviewed date:01/30/2024 12:57:21 PM Interpretation:Negative Performing Lab: Notes/Report: Negative Occult Blood, Stool, Guaiac Neg Reason For Referral No Information Medications Medication SIG (Take, Route, Frequency, Duration) Notes Start Date End Date Status Celecoxib 200 MG 1 capsule with food Orally Once a day for 30 day(s) 10/30/2018 Not-Taking Cyclobenzaprine HCl 5 MG 1 tablet at bed time as needed Orally twice a day for 10 days 09/03/2021 Not-Taking Fluticasone Propionate 50 MCG/ACT USE 1 SPRAY IN BOTH NOSTRILS ONCE DAILY for 90 Active Ibuprofen 600 MG 1 tablet Orally Thre e times a day Not-Taking Fluorouracil 5 % 1 application to affected area Externally Twice a day 02/13/2017 Not-Esme munoz Valsartan-hydroCHLOROthiaz gregory 320-25 MG TAKE 1 TABLET BY MOUTH ONCE DAILY for 90 Active Escitalopram Oxalate 10 MG 1 tablet Oral ly Once a day for 30 days 05/10/2024 Active prednisoLONE Acet-Moxifloxacin 1-0.5 % as directed Ophthalmic Active Simvastatin 40 MG TAKE 1 TABLET BY JERALD TH ONCE DAILY IN THE EVENING for 90 Active Timolol Hemihydrate 0.5 % 1 drop into af fected eye Ophthalmic Once a day Active Proscar 5 MG 1 tablet Orally Once a day Active Immunizations Vaccine Route Administration Date Status Comme nts Flu Vaccine IM Intramuscular 01/10/2012 Administered PPSV23 (Pnemovax) IM Intramuscular 07/10/2012 Administered Flu Vaccine IM Intramuscular 01/28/2013 Administered Flu Vaccine Unknown 02/05/2014 [facility] [place] Fluarix Quadrivalent IM Intramuscular 12/19/2014 Administered Shingles IM Intramuscular 07/03/2015 Administered Fluarix Quadrivalent IM Intramuscular 01/01/2016 Administered Prevnar 13 IM Intramuscular 01/01/2016 Administered Fluarix Quadrivalent IM Intramuscular 02/13/2017 Administered PPSV23 (Pnemovax) IM Intramuscular 08/14/2017 Administered Shingrix IM Intramuscular 08/18/2017 Administered Shingrix IM Intramuscular 12/19/2017 Administered Fluarix Quadrivalent IM Intramuscular 01/08/2018 Administered Fluarix Quadrivalent Unknown 01/18/2019 Administered pt was given the vaccine at [facility] in [place]. Fluarix Quadrivalent IM Intramuscular 01/16/2020 Administered SARS-COV-2 Moderna Unknown 04/15/2020 Administered SARS-COV-2 Moderna Unknown 05/15/2020 Administered Influenza High Dose IM Intramuscular 12/08/2020 Administer ed SARS-COV-2 Moderna Unknown 01/15/2021 Administered Influenza High Dose IM Intramuscular 12/22/2022 Administer ed Influenza High Dose IM Intramuscular 01/30/2024 Administer ed Influenza High Dose IM Intramuscular 01/27/2025 Administer ed TDaP Unknown 01/17/2020 Pending [facility] Social History Tobacco Use: Social History Observation [...] Never (0 point) Points 2 Interpretation Negative Problems Problem Type SNOMED Code ICD Code Onset Dates Problem Status W/U Status Risk Notes Problem Hemorrhage of colon due to diverticulosis (892688688202552) 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) Active confirmed Problem 734404869 Neuropathy (G62.9) Active confirmed Problem 87548577 Anxiety (F41.9) Active confirmed Problem Benign prostatic hyperplasia (797621819) BPH (benign prostatic hyperplasia) (N40.0) Active confirmed Problem 49994112 Essential hypert ension (I10) Active confirmed Problem 1209557 Prediabetes (R73.09) Active confirmed Problem 728313566 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) Active confirmed Problem 73227170 Sciatica of righ t side (M54.31) Active confirmed Problem Idiopathic peripheral neuropathy (32622075) Idiopathic peripheral neuropathy (G60.9) Active confirmed Problem 792618268 Pure hypercholesterolemia (E78.00) Active confirmed Problem 72240618 Bilateral renal cysts (N28.1) Active confirmed Problem 2345564054045238 Arthritis of kn ee, 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) Active confirmed Vital Signs Blood pressure diastolic 78 mm Hg 08/22/2024 faina ght is down 3 pounds since 05-10-24 will check bp at home Height 69 in 08/22/2024 weight is down 3 pounds since 05-10-24 will check bp at home Blood pressure systolic 162 mm Hg 08/22/2024 weig ht is down 3 pounds since 05-10-24 will check bp at home Weight 197 lbs 08/22/2024 weight is down 3 pounds since 05-10-24 will check bp at home BMI 29.09 kg/m2 08/22/2024 weight is down 3 pounds since 05-10-24 will check bp at home Encounters Encounter Location Date Provider Diagnosis Severo Phillips MD [address] [place] [address] [address] [place], [place] [phone] 05/06/2024 Severo Phillips Prediabetes R73.09 Severo Phillips MD [address] [place] [id number] 01/27/2025 Severo Phillips Essential hypertensi on I10 ; Prediabetes R73.09 ; BPH (benign prostatic hyperplasia) N40.0 and Encounter for administration of vaccine Z23 Severo Phillips MD [address] [place] [id number] 01/30/2024 Severo Phillips Essential hypertensi on I10 ; Pure hypercholesterolemia E78.00 ; Prediabetes R73.09 ; BPH (benign prostatic hyperplasia) N40.0 ; Encounter for immunization Z23 ; Colon cancer screening Z12.11 and Depression screening Z13.31 Severo Phillips MD [address] [id number] 02/01/2024 Severo Phillips Prediabetes R73.09 ; Elevated LFTs R79.89 and Pure hypercholesterolemia E78.00 Severo Phillips MD [address] [id number] 05/10/2024 Severo Phillips Essential hypertensi on I10 ; Prediabetes R73.09 ; Pure hypercholesterolemia E78.00 ; Elevated LFTs R79.89 ; Anxiety F41.9 and Excessive cerumen in left ear canal H61.22 Severo Phillips MD [address] [id number] 08/22/2024 Severo Phillips Prediabetes R73.09 ; Essential hypertension I10 and Pure hypercholesterolemia E78.00 Severo Phillips MD [address] [place] [id number] 05/14/2024 Severo Phillips Anxiety F41.9 Assessments Encounter Date Diagnosis (ICD Code) Assessment Notes Treatment Notes Treatment Clinical Notes Section Notes 05/06/2024 Prediabetes (ICD-10 - R73.09) 01/27/2025 Essential hypertensi on (ICD-10 - I10) 01/27/2025 Prediabetes (ICD-10 - R73.09) 01/30/2024 Essential hypertensi on (ICD-10 - I10) is running high today but is going to get [facility] checked [facility] 01/30/2024 Pure hypercholesterolemia (ICD-10 - E78.00) need labs from [facility] / request for records will be sent 02/01/2024 Prediabetes (ICD-10 - R73.09) needs todiet, noneed formedication at this time, will contiue to monitor 02/01/2024 Elevated LFTs (ICD-1 0 - R79.89) decrease wine, will continue to monitor 05/10/2024 Essential hypertensi on (ICD-10 - I10) stable, will continue current regiment 05/10/2024 Prediabetes (ICD-10 - R73.09) stable, no need for medication at this time 08/22/2024 Prediabetes (ICD-10 - R73.09) well controlled 05/14/2024 Anxiety (ICD-10 - F41.9) 01/27/2025 BPH (benign prostati c hyperplasia) (ICD-10 - N40.0) 01/30/2024 Prediabetes (ICD-10 - R73.09) stable, no need for medication at this time 02/01/2024 Pure hypercholesterolemia (ICD-10 - E78.00) stable, will contiue current regiment 05/10/2024 Pure hypercholesterolemia (ICD-10 - E78.00) stable, will continue current regiment 08/22/2024 Essential hypertensi on (ICD-10 - I10) is a little high but is going to check it at home 01/27/2025 Encounter for administration of vaccine (ICD-10 - Z23) 01/30/2024 BPH (benign prostati c hyperplasia) (ICD-10 - N40.0) stable, will contiue current regiment 05/10/2024 Elevated LFTs (ICD-1 0 - R79.89) will retry lft's after lent 08/22/2024 Pure hypercholesterolemia (ICD-10 - E78.00) doing well on meds 01/30/2024 Encounter for immunization (ICD-10 - Z23) flu vaccine administered 05/10/2024 Anxiety (ICD-10 - F41.9) will try ssi, patient verbalized understanding of medicatio and directions for use 01/30/2024 Colon cancer screeni ng (ICD-10 - Z12.11) guaiac negative 05/10/2024 Excessive cerumen in left ear canal (ICD-10 - H61.22) removed without issue 01/30/2024 Depression screening (ICD-10 - Z13.31) negative screen Plan Of Treatment Pending Test Test Name Order Date Electrocardiogram (EKG) 01/01/2016 CT ABD NO CONTRAST 09/12/2013 MRI ABD W&WO CONTRAST 10/24/2013 XR GI SERIES 01/01/2016 Complete Blood Count Auto Diff 5 Comprehensive [place]. Panel Fast 5 XR hand wrist RT 12/12/2023 XR wrist RT 2V 12/12/2023 XR hand RT 2V 12/12/2023 UA ClnCatch+Micro w/rflx Cult 01/27/2025 Next Appt Details Provider Name:Severo Luque ier, 02/03/2025 10:30:00 AM, [address] [place] [address], [address], [place], [place], [id number], Insurance Providers Payer Name Payer Address Payer Phone Subscriber Number Group Number Insured Name Patient Relationship to Insured Coverage Start Date Coverage End Date MEDICARE [facility] [address] [place] [address] [id number] Travis Pond Self - patient is the insured [facility] [employer] [facility] CLAIM DIV [address] [place] [address] [phone] [id number] Travis Pond Self - patient is the insured Medical (General) History Medical History History ICD Code colonoscopy 2011 going to have another a s could not make it around Needs US Renal Bilateral in Jul, 2012 (f /u to US done 07/2013) colonoscopy 08/31/12 - repeat 10 years due 2022
--- OUTSIDE RECORDS SUMMARY | 2025-01-27 12:14 | XMS_ITS | Patient Health Record ---
Author Organization [facility] Address [address] [place] [address] Care Team Providers Care Well Blower Name Role Phone Severo Phillips MD Primary Care Provider Mac Pang Unavailable [phone] Allergies Allergen (clinical drug ingredient) Drug/Non Drug Allergy documented on EMR Reaction Allergy Type Onset Date Status Iodine dye (uncoded) Unknown Allergy Active Reason For Referral No Information Medications Medication SIG (Take, Route, Frequency, Duration) Notes Start Date End Date Status MoviPrep 100 GM as directed Orally o nce; Duration: 1 dose 04/24/2012 Active Lisinopril-hydroCHLOROthiaz gregory Active Finasteride Active Simvastatin Active Problems Problem Type SNOMED Code ICD Code Onset Dates Problem Status W/U Status Risk Notes Problem Colon cancer screening (121653147) Colon cancer screening (V76.51) Active confirmed Problem Computed tomography of abdomen abnormal (finding) (7328511666791 9107) Abnormal computed tomography of gastrointestinal tract (793.4) Active confirmed Plan Of Treatment Future Test Test Name Order Date COLONOSCOPY 04/24/2012 Insurance Providers Payer Name Payer Address Payer Phone Subscriber Number Group Number Insured Name Patient Relationship to Insured Coverage Start Date Coverage End Date [facility] [address] [place] [phone] [id number] LUCIUS MOODY Self - patient is the insured Medical (General) History Medical History History ICD Code HTN Hyperlipidemia BPH 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
== END 2025-01-27 10:09 | disposition home or self-care (01) ==
LOC: HO.LNP 10:08
PROVIDERS: Visit Provider Internal Medicine
DX: I10 Essential (primary) hypertension (principal); N40.0 Benign prostatic hyperplasia without lower urinary tract symptoms; R73.09 Other abnormal glucose; Z12.5 Encounter for screening for malignant neoplasm of prostate
CPT/HCPCS: 80053; 80061; 81001; 81003; 82043; 82570; 83036; 84153; 85025; 87086